=== PATIENT | female | born 1980 | race Caucasian/White ===

== ENCOUNTER 2022-01-27 07:04 | Inpatient (IN) | payer OTHER ==
[~2022-01-27 07:04] MED LIST: Lactated Ringers 1,000 ML IV ONE; Penicillin G Potassium 5 MILLUNITS in Sodium Chloride 0.9% 100 ML IV ONE
[2022-01-27] MEDS ORDERED: ePHEDrine 50 MG/ML SDV IVPUSH PRN (08:00)
[2022-01-27] MEDS ORDERED: Lidocaine 1% 10 ML MDV INJECT PRN (08:00)
[2022-01-27] MEDS ORDERED: Misoprostol 400 MCG (4 X 100 MCG TAB) RECTAL PRN ×2 (08:00→19:10)
[2022-01-27] MEDS ORDERED: Misoprostol 50 MCG (1/2 of 100 MCG) Tab VAG PRN (08:00)
[2022-01-27] MEDS ORDERED: Famotidine 20 MG/2 ML SDV IVPUSH PRN (08:00)
[2022-01-27] MEDS ORDERED: Acetaminophen 325 MG Tab PO PRN ×3 (08:00→19:10)
[2022-01-27] MEDS ORDERED: Promethazine 25 MG/ML SDV IM PRN (08:00)
[2022-01-27] MEDS ORDERED: Naloxone 2 MG/2 ML Syringe IVPUSH PRN (08:00)
[2022-01-27] MEDS ORDERED: Ondansetron 4 MG/2 ML SDV IVPUSH PRN ×2 (08:00)
[2022-01-27] MEDS ORDERED: Carboprost Tromethamine 250 MCG/1 ML Amp IM PRN ×2 (08:00→19:10)
[2022-01-27] MEDS ORDERED: Oxytocin/Normal Saline 30 UNIT/500 ML BAG IV SCH ×2 (08:00)
[2022-01-27] MEDS ORDERED: Methylergonovine 0.2 MG/1 ML Amp IM PRN (08:00)
[2022-01-27] MEDS ORDERED: Lactated Ringers 1,000 ML IV SCH (08:00)
[2022-01-27] MEDS ORDERED: Sodium Chloride 0.9% 10 ML Syringe FLUSH PRN ×2 (08:00→19:10)
[2022-01-27] MEDS ORDERED: Penicillin G Potassium 5 MILLUNITS in Sodium Chloride 0.9% 100 ML IV ONE (09:30)
[2022-01-27] MEDS: Lactated Ringers 1,000 ML IV SCH ×2 (09:52→17:53)
[2022-01-27] MEDS: Penicillin G Potassium 3 MILLUNITS in Sodium Chloride 0.9% 100 ML IV SCH ×2 (14:10→18:13)
[2022-01-27] MEDS ORDERED: EPINEPHrine 1 MG/ML SDV ONE (17:23)
[2022-01-27] MEDS ORDERED: Morphine PF 10 MG/10 ML SDV ONE (17:26)
[2022-01-27] MEDS ORDERED: Simethicone 80 MG Tab.Chew PO PRN (19:10)
[2022-01-27] MEDS ORDERED: Ibuprofen 800 MG Tab PO PRN (19:10)
[2022-01-27] MEDS ORDERED: Docusate Sodium 100 MG Cap PO PRN (19:10)
[2022-01-27] MEDS ORDERED: Benzocaine/Menthol 20%-0.5% Spray 78 GM Cannister TOP PRN ×2 (19:10→20:41)
[2022-01-27] MEDS ORDERED: Oxytocin 10 Units/1 ML SDV IM PRN (19:10)
[2022-01-27] MEDS ORDERED: Witch Hazel Medicated Pads 100/Jar TOP PRN (20:41)
[2022-01-27] MEDS: Ibuprofen 800 MG Tab PO PRN (20:55)
[2022-01-28] MEDS: Penicillin G Potassium 3 MILLUNITS in Sodium Chloride 0.9% 100 ML IV SCH (00:40)
[2022-01-28] MEDS: Ibuprofen 800 MG Tab PO PRN (05:51)
[2022-01-28] MEDS ORDERED: Prenatal Multivitamin with Calcium/Folic Acid/Iron Tab PO SCH (09:00)
== END 2022-01-28 15:20 | disposition home or self-care (01) | DRG 805 ==
LOC: DL.OB 08:25 → OBSVTOIN 18:48
PROVIDERS: ADMIT Family Medicine; ATTEND Family Medicine
PROC: 10E0XZZ Delivery of Products of Conception, External Approach (ICD-10-PCS; principal; 2022-01-27)
PROC: 10907ZC Drainage of Amniotic Fluid, Therapeutic from Products of Conception, Via Natural or Artificial Opening (ICD-10-PCS; 2022-01-27)
PROC: 3E033VJ Introduction of Other Hormone into Peripheral Vein, Percutaneous Approach (ICD-10-PCS; 2022-01-27)
PROC: 3E0R3BZ Introduction of Anesthetic Agent into Spinal Canal, Percutaneous Approach (ICD-10-PCS; 2022-01-27)
PROC: 4A1HXCZ Monitoring of Products of Conception, Cardiac Rate, External Approach (ICD-10-PCS; 2022-01-27)
DX: O99.824 Streptococcus B carrier state complicating childbirth (principal); U07.1 COVID-19; Z37.0 Single live birth; O98.52 Other viral diseases complicating childbirth; Z3A.39 39 weeks gestation of pregnancy; O77.0 Labor and delivery complicated by meconium in amniotic fluid; O70.0 First degree perineal laceration during delivery; O99.02 Anemia complicating childbirth; D50.0 Iron deficiency anemia secondary to blood loss (chronic)
CPT/HCPCS: 36415; 59409; 85027; A9270-GY; J2540; J2590; J7120; U0002